=== PATIENT | male | born 1995 | race Caucasian/White ===

== ENCOUNTER 2016-09-24 00:29 | Emergency (ER) | payer OTHER ==
[~2016-09-24] VITALS: Ht 190.5 cm; Wt 90.7 kg
[2016-09-24 00:32] VITALS: BP 134/73; PULSE 62; RESP 16; TEMP 97.3; O2SAT 97
[2016-09-24] MEDS ORDERED: HYDROcodone/ACETAMIN 5-325 MG TAB (NORCO/ VICODIN) PO ONE (01:00)
[2016-09-24] MEDS ORDERED: ONDANSETRON 4 MG ODT TAB PO ONE (01:00)
[2016-09-24 01:51] VITALS: BP 127/68; PULSE 63; RESP 16; TEMP 97.3; O2SAT 97
== END 2016-09-24 01:50 | disposition home or self-care (01) ==
LOC: SED 00:29
DX: K08.89 Other specified disorders of teeth and supporting structures (principal); R03.0 Elevated blood-pressure reading, without diagnosis of hypertension
CPT/HCPCS: 70486; 99284; Q0162